=== PATIENT | female | born 1985 ===

== ENCOUNTER 2019-03-15 08:08 | Outpatient (CLI) | payer OTHER ==
--- NOTE | 2019-03-15 11:30 | ULT ---
OB ULTRASOUND: HISTORY: Size and dates. FINDINGS: Real-time imaging of the pelvis was performed. This shows a single viable intrauterine in a cephalic presentation. The placenta is more anterior in location without evidence of previa. The cervical canal length is 4 cm. Review of anatomy shows a 4-chamber heart, normal stomach, kidneys, bladder, cord insertion, 3- vessel cord, extremities, and spine. No anomalies detected. Amniotic fluid is adequate for this stage of . The Amniotic fluid index was calculated at 1 3.8. The heart rate is 135 b.p.m. measurements are as follows: BPD 4.8 cm, 20 weeks 4 days Head circumference 18.2 cm, 20 weeks 5 days Abdominal circumference 14.4 cm, 29 weeks 5 days Femur length 3.3 cm, 20 weeks 3 days IMPRESSION: 1. Single viable intrauterine in a cephalic presentation, overall measurements correspondi ng to a gestational age over 20 weeks 3 days and estimated date of delivery of 07/26/2019. 2. Placenta which is more anterior and fundal in location. POS: OFF
== END 2019-03-15 08:09 | disposition home or self-care (01) ==
LOC: BICULT 08:08
DX: Z34.82 Encounter for supervision of other normal pregnancy, second trimester (principal); Z3A.20 20 weeks gestation of pregnancy
CPT/HCPCS: 76805

== ENCOUNTER 2019-07-21 09:48 | Inpatient (IN) | payer OTHER ==
[2019-07-21 10:29] VITALS: BMI 34.9
[2019-07-21] MEDS ORDERED: Butorphanol Tartrate 1 MG/ML VIAL SLOW IVP PRN (11:15)
[2019-07-21] MEDS ORDERED: Dextrose 5%-Lactated Ringers 1,000 ML IV SCH (11:15)
[2019-07-21] MEDS ORDERED: hydrALAZINE 20 MG/ML VIAL SLOW IVP PRN ×2 (11:15→21:59)
[2019-07-21] MEDS ORDERED: Ondansetron PF 4 MG/2 ML Vial IVP PRN ×3 (11:15→21:59)
[2019-07-21] MEDS ORDERED: Meperidine HCl/PF 25 MG/ML VIAL IM/IV PRN (11:15)
[2019-07-21] MEDS ORDERED: Promethazine HCl 25 MG/ML VIAL IM PRN ×3 (11:15→21:59)
[2019-07-21] MEDS ORDERED: Acetaminophen 500 MG TAB PO PRN (11:15)
[2019-07-21] MEDS ORDERED: Lidocaine 2% MPF 10 ML AMP (For Epidural Use) ONE (11:27)
[2019-07-21] MEDS ORDERED: Ibuprofen 800 MG TAB PO PRN (11:30)
[2019-07-21] MEDS ORDERED: Methylergonovine 0.2 MG/ML VIAL IM PRN (11:30)
[2019-07-21] MEDS ORDERED: Diphenoxylate HCl/Atropine Tablet PO PRN ×2 (11:30)
[2019-07-21] MEDS ORDERED: Misoprostol 200 MCG TAB RC PRN (11:30)
[2019-07-21] MEDS ORDERED: HYDROcodone/Acetaminophen 5/325 mg Tablet PO PRN ×4 (11:30→21:59)
[2019-07-21] MEDS ORDERED: Carboprost 250 MCG/ML AMP IM PRN (11:30)
[2019-07-21] MEDS ORDERED: Acetaminophen/Codeine 30-300mg Tablet PO PRN ×2 (11:30)
[2019-07-21] MEDS ORDERED: NS w/ Oxytocin 10 units 500 ML IV SCH ×2 (11:30)
[2019-07-21] MEDS ORDERED: NS / Oxytocin 40 units/1000ml 1,000 ML IV SCH ×2 (11:30→21:59)
[2019-07-21] MEDS: Lactated Ringer's 1,000 ML IV SCH ×2 (11:45→15:30)
[2019-07-21 12:14] LABS: Hemoglobin 13.4 g/dL (12.0-16.0); Mean Corpuscular HGB CONC 34.9 g/dL (32.0-36.0); Mean Corpuscular Hemoglobin 31.5 pg (27.0-31.0); Mean Corpuscular Volume 90.3 fL (78.0-98.0); Mean Platelet Volume 6.7 fL (7.4-10.4); Platelet Count 176 thou/uL (130-400); RBC Distribution Width 12.4 % (11.5-14.5); Red Blood Cell (RBC) Count 4.25 mill/uL (4.20-5.40); White Blood Cell (WBC) Count 8.2 thou/uL (4.8-10.8)
[2019-07-21 12:53] LABS: HBSAg Index 0.29 S/CO (0-0.99); HIV (1/2) Antibody/Antigen Non-Reactive (NonReactive); HIV 1/2 INDEX 0.13 S/CO (<1.00); Hep B Surf Ag Non-Reactive S/CO (NonReactive); Syphilis Antibody Nonreactive (Nonreactive); Syphilis Antibody Index 0.03 S/CO (<1.00 Non-Reactive)
[2019-07-21] MEDS ORDERED: Fentanyl 4 mcg/Bup 0.1% Cadd 100 ML ONE (13:39)
[2019-07-21] MEDS ORDERED: ePHEDrine/0.9% NaCl/PF SYRINGE 50 mg/10 ml SLOW IVP PRN (15:09)
[2019-07-21] MEDS ORDERED: Lactated Ringer's 500 ML IV PRN (15:09)
[2019-07-21] MEDS ORDERED: Acetaminophen 325 MG TAB PO PRN (15:09)
[2019-07-21] MEDS ORDERED: Naloxone HCl 0.4 mg/ml Vial IVP PRN ×2 (15:09)
[2019-07-21] MEDS ORDERED: diphenhydrAMINE 50 MG/ML VIAL IVP PRN (15:09)
[2019-07-21] MEDS ORDERED: Fentanyl 4 mcg/Bupivacaine 0.1% Cassette 100 ML EPIDURAL SCH (15:15)
[2019-07-21] MEDS ORDERED: Communication Order-Pharmacy FS SCH (15:15)
[2019-07-21] MEDS ORDERED: Lidocaine 1% (PF) 30 ML VIAL ONE (17:35)
[2019-07-21] MEDS ORDERED: Preparation H Ointment 28 GM TUBE PR PRN (21:59)
[2019-07-21] MEDS ORDERED: diphenhydrAMINE 25 MG CAP PO PRN (21:59)
[2019-07-21] MEDS ORDERED: Bisacodyl 10 MG SUPP PR PRN (21:59)
[2019-07-21] MEDS ORDERED: Lanolin Ointment 7 GM TUBE TOP PRN (21:59)
[2019-07-21] MEDS ORDERED: Benzocaine-Menthol 82.5 ML CAN TOP PRN (21:59)
[2019-07-21] MEDS ORDERED: Milk Of Magnesia 30 ML UDCUP PO PRN (21:59)
[2019-07-21] MEDS: Ibuprofen 800 MG TAB PO SCH (22:48)
[2019-07-22] MEDS: Ibuprofen 800 MG TAB PO SCH ×3 (05:27→21:24)
[2019-07-22 05:42] LABS: Hemoglobin 12.1 g/dL (12.0-16.0); Mean Corpuscular HGB CONC 34.3 g/dL (32.0-36.0); Mean Corpuscular Hemoglobin 31.5 pg (27.0-31.0); Mean Platelet Volume 5.9 fL (7.4-10.4); Platelet Count 133 thou/uL (130-400); RBC Distribution Width 12.5 % (11.5-14.5); Red Blood Cell (RBC) Count 3.84 mill/uL (4.20-5.40); White Blood Cell (WBC) Count 12.9 thou/uL (4.8-10.8)
[2019-07-22] MEDS: Ferrous Sulfate 325 MG TAB PO SCH ×2 (07:53→16:49)
[2019-07-22] MEDS: Docusate Calcium (SURFAK) 240 MG CAP PO SCH ×2 (08:48→21:24)
[2019-07-22] MEDS: Prenatal Vitamin 1 TAB PO SCH (08:48)
[2019-07-22] MEDS ORDERED: Adacel (T-DAP) 0.5 ML SYRINGE IM ONE (09:00)
[2019-07-23] MEDS: Ibuprofen 800 MG TAB PO SCH ×2 (06:18→12:42)
[2019-07-23] MEDS: Ferrous Sulfate 325 MG TAB PO SCH ×2 (08:12→15:37)
[2019-07-23] MEDS: Docusate Calcium (SURFAK) 240 MG CAP PO SCH (08:12)
[2019-07-23] MEDS: Prenatal Vitamin 1 TAB PO SCH (08:12)
[2019-07-23 09:11] VITALS: BP 128/77; TEMP 98
== END 2019-07-23 18:10 | disposition home or self-care (01) | DRG 807 ==
LOC: L&D/OP 09:48 → L&D 11:35 → 3SW 20:58
PROVIDERS: ADMIT Family Medicine; ATTEND Family Medicine
PROC: 10E0XZZ Delivery of Products of Conception, External Approach (ICD-10-PCS; principal; 2019-07-21)
PROC: 0W8NXZZ Division of Female Perineum, External Approach (ICD-10-PCS; 2019-07-21)
DX: O76 Abnormality in fetal heart rate and rhythm complicating labor and delivery (principal); Z37.0 Single live birth; Z3A.38 38 weeks gestation of pregnancy
CPT/HCPCS: 36415; 85027; 86780; 86850; 86900; 86901; 87340; 87389; J2001; J2590